=== PATIENT | female | born 1990 | race Caucasian/White ===

== ENCOUNTER 2018-05-15 18:39 | Emergency (ER) | payer BC ==
[2018-05-15 18:44] VITALS: BP 122/87; PULSE 78; TEMP 97.8; BMI 23.3
[2018-05-15 19:45] LABS: BASO % 0.6 % (0-2.0); EOS % 1.8 % (0-4.5); HEMATOCRIT 39.2 % (32.4-45.2); HEMOGLOBIN 13.4 GM/dL (10.7-15.3); LYMPH % 28.9 % (8-40); MCH 31.2 pg (25.7-33.7); MCHC 34.3 g/dl (32.0-36.0); MEAN CELL VOLUME 90.9 fl (80-96); MEAN PLT VOLUME 8.5 fl (7.5-11.1); MONO % 6.2 % (3.8-10.2); NEUT % 62.5 % (42.8-82.8); PLATELET COUNT 304 K/MM3 (134-434); RBC 4.31 M/mm3 (3.60-5.2); RDW 12.3 % (11.6-15.6); WHITE BLOOD COUNT 10.6 K/mm3 (4.0-10.0)
[2018-05-15 20:43] LABS: ALBUMIN 4.1 g/dl (3.4-5.0); ALK PHOS 46 U/L (45-117); ANION GAP 6 MMOL/L (8-16); BILIRUBIN,TOTAL 0.3 mg/dL (0.2-1); BLOOD UREA NITROGEN 6 mg/dL (7-18); CALCIUM 10.1 mg/dL (8.5-10.1); CHLORIDE 108 mmol/L (98-107); CO2 27 mmol/L (21-32); CREATININE 0.4 mg/dL (0.55-1.3); GLUCOSE,RANDOM 96 mg/dL (74-106); POTASSIUM 4.7 mmol/L (3.5-5.1); SGOT/AST 11 U/L (15-37); SGPT/ALT 17 U/L (13-61); SODIUM 141 mmol/L (136-145); TOT PROT 7.1 g/dl (6.4-8.2)
[2018-05-15 20:48] LABS: HCG,QUALITATIVE URINE Positive
[2018-05-15 20:49] LABS: URINE APPEARANCE SLCLOUDY; URINE BILIRUBIN NEGATIVE (<2.0 mg/dL); URINE COLOR LTYELLOW; URINE GLUCOSE (UA) NEGATIVE (NEGATIVE); URINE KETONE NEGATIVE (NEGATIVE); URINE LEUK ESTERASE NEGATIVE (NEGATIVE); URINE NITRITE NEGATIVE (NEGATIVE); URINE PROTEIN NEGATIVE (NEGATIVE); URINE UROBILINOGEN NEGATIVE mg/dL (0.2-1.0)
[2018-05-15 20:53] LABS: EPI CELLS RARE /HPF (FEW); URINE BACTERIA RARE /hpf (NONE SEEN); URINE MUCUS RARE
--- NOTE | 2018-05-15 21:09 | PDOC ---
History of Present Illness - General Chief Complaint: Vaginal Bleeding Stated Complaint: 12 PREGNATNT VAGINAL BLEEDING Time Seen by Provider: 05/15/18 19:34 History Source: Patient Exam Limitations: No Limitations - History of Present Illness Travel History: No Initial Comments: 05/15/18 21:20 Best Contact: / Maria E: PCP:Dr. Cervantes/Britta Pmhx:0 Pshx:0 Allergies:NKDA FH:0 Social Hx: Cigarettes/ 0 Alcohol/0 Drugs/0 LMP:02/15/2018 27-year-old female presents to the emergency department with her complaining of vaginal spotting 3 hours ago. With lower pelvic cramping described as 4/10 nonradiating intermittent discomfort. Patient states after voiding, she wiped and noticed a quarter size blood clot. Patient denies fever, chills, nausea/vomiting, headache, dizziness, lightheadedness, back pain, chest pain, shortness of breath, flank pains, urinary symptoms: Frequency/urgency/ hesitancy, hematuria. Patient states she last had her ultrasound 3 weeks ago which was normal at her checkup with her blanket inspector. Past History - Past Medical History Allergies/Adverse Reactions: Allergies Allergy/AdvReac Type Severity Reaction Status Date / Time No Known Allergies Allergy Verified 05/15/18 18:41 COPD: No - Reproductive History Is Patient Now?: Yes - Suicide/Smoking/Psychosocial Hx Smoking History: Never smoked Information on smoking cessation initiated: No Hx Alcohol Use: No Drug/Substance Use Hx: No Substance Use Type: None Review of Systems - Review of Systems Able to Perform ROS?: Yes Comments:: 05/15/18 21:37 CONSTITUTIONAL: Absent: fever, chills, diaphoresis, generalized weakness, malaise, loss of appetite GASTROINTESTINAL: +Pelvic cramping Absent: abdominal pain, abdominal distension, nausea, vomiting, diarrhea, constipation, melena, hematochezia GENITOURINARY: Absent: dysuria, frequency, urgency, hesitancy, hematuria, flank pain, genital pain MUSCULOSKELETAL: Absent: myalgia, arthralgia, joint swelling SKIN: Absent: rash, itching, pallor HEMATOLOGIC/IMMUNOLOGIC: Absent: easy bleeding, easy bruising, lymphadenopathy, frequent infections ENDOCRINE: Absent: unexplained weight gain, unexplained weight loss, heat intolerance, cold intolerance NEUROLOGIC: Absent: headache, focal weakness or paresthesias, dizziness, unsteady gait, seizure, mental status changes, bladder or bowel incontinence PSYCHIATRIC: Absent: anxiety, depression, suicidal or homicidal ideation, hallucinations. Is the patient limited Swedish proficient: No *Physical Exam - Vital Signs Last Vital Signs Temp Pulse Resp BP Pulse Ox 97.8 F 78 18 122/87 100 05/15/18 18:42 05/15/18 18:42 05/15/18 18:42 05/15/18 18:42 05/15/18 18:42 - Physical Exam Comments: 05/15/18 21:41 GENERAL: Well developed, well nourished. Awake and alert. No acute distress. HEENT: Normocephalic, atraumatic. PERRLA, EOMI. No conjunctival pallor. Sclera are non- icteric. Moist mucous membranes. Oropharynx is clear. NECK: Supple. Full ROM. No JVD. Carotid pulses 2+ and symmetric, without bruits. No thyromegaly. No lymphadenopathy. CARDIOVASCULAR: Regular rate and rhythm. No murmurs, rubs, or gallops. Distal pulses are 2+ and symmetric. PULMONARY: No evidence of respiratory distress. Lungs clear to auscultation bilaterally. No wheezing, rales or rhonchi. ABDOMINAL: Soft. Non-tender. Non-distended. No rebound or guarding. No organomegaly. Normoactive bowel sounds. SKIN: Warm and dry. Normal capillary refill. No rashes. No jaundice. Pelvic: External genitalia normal without lesions. Vaginal vault + blood Cervix is long and closed. ED Treatment Course - LABORATORY CBC & Chemistry Diagram: 05/15/18 19:31 05/15/18 19:31 - ADDITIONAL ORDERS Additional order review: Laboratory Results 05/15/18 05/15/18 05/15/18 20:30 19:31 19:31 Sodium Potassium Chloride Carbon Dioxide Anion Gap BUN Creatinine Creat Clearance w eGFR Random Glucose Calcium Total Bilirubin AST ALT Alkaline Phosphatase Total Protein Albumin Beta HCG, Quant Cancelled Urine Color Ltyellow Urine Appearance Slcloudy Urine pH 6.0 Ur Specific [place] 1.011 Urine Protein Negative Urine Glucose (UA) Negative Urine Ketones Negative Urine Blood 3+ H Urine Nitrite Negative Urine Bilirubin Negative Urine Urobilinogen Negative Ur Leukocyte Esterase Negative Urine WBC (Auto) 6 Urine RBC (Auto) 5 Ur Epithelial Cells Rare Urine Bacteria Rare Urine Mucus Rare Urine HCG, Qual Positive Blood Type A POSITIVE Antibody Screen Negative 05/15/18 19:31 Sodium 141 Potassium 4.7 Chloride 108 H Carbon Dioxide 27 Anion Gap 6 L BUN 6 L Creatinine 0.4 L Creat Clearance w eGFR > 60 Random Glucose 96 Calcium 10.1 Total Bilirubin 0.3 AST 11 L ALT 17 Alkaline Phosphatase 46 Total Protein 7.1 Albumin 4.1 Beta HCG, Quant 2629.9 Urine Color Urine Appearance Urine pH Ur Specific [place] Urine Protein Urine Glucose (UA) Urine Ketones Urine Blood Urine Nitrite Urine Bilirubin Urine Urobilinogen Ur Leukocyte Esterase Urine WBC (Auto) Urine RBC (Auto) Ur Epithelial Cells Urine Bacteria Urine Mucus Urine HCG, Qual Blood Type Antibody Screen 05/15/18 19:31 RBC 4.31 MCV 90.9 MCHC 34.3 RDW 12.3 MPV 8.5 Neutrophils % 62.5 Lymphocytes % 28.9 Monocytes % 6.2 Eosinophils % 1.8 Basophils % 0.6 - RADIOLOGY Radiology Studies Ordered: Category Date Time Status TRANSVAGINAL US PREG [US] Stat Ultrasound 05/15/18 19:23 Ordered Radiograph Interpretation: 05/15/18 23:11 Transvaginal US; single intrauterine gestation with enlarged irregular gestational sac and no heart rate. Consistent with missed *DC/Admit/Observation/Transfer Diagnosis at time of Disposition: Missed - Discharge Dispostion Condition at time of disposition: Stable Decision to Admit order: No - Referrals Referrals: Ciro Almendarez MD [Staff Physician] - - Patient Instructions Printed Discharge Instructions: DI for Miscarriage Additional Instructions: Your Beta HCG today was: 2629.9 Your transvaginal ultrasound today shows: Single intrauterine gestation with enlarged irregular gestational sac and no heart rate. These findings are consistent with missed . Measures 12 x 6.8 x 6.3 cm in diameter. There is a intrauterine gestational sac and pole identified. However, the gestational sac is somewhat enlarged in comparison with the identified pole with irregular borders. A yolk sac was not identified. The heart rate was not identified. [place]-rump length measurements corresponding to an expected gestational age of 8 weeks 3 days. heart rate should be identified at this stage. Increase fluids Pelvic rest Follow-up with your blanket inspector in 2 days Return back to the emergency department for severe/persistent/worsening pain or any concerns - Post Discharge Activity
== END 2018-05-15 23:18 | disposition home or self-care (01) ==
LOC: JER 18:39
DX: O26.891 Other specified pregnancy related conditions, first trimester (principal); O02.1 Missed abortion; Z3A.08 8 weeks gestation of pregnancy
CPT/HCPCS: 36415; 76817-TC; 80053; 81003; 81015; 84702; 84703; 85025; 86850; 86900; 86901; 99283-25

== ENCOUNTER 2018-05-18 19:52 | Day surgery (SDC) | payer BC ==
--- NOTE | 2018-05-18 20:15 | PDOC ---
History of Present Illness - General Stated Complaint: SENT BY PCP Time Seen by Provider: 05/18/18 20:13 History Source: Patient Exam Limitations: No Limitations Past History - Past Medical History Allergies/Adverse Reactions: Allergies Allergy/AdvReac Type Severity Reaction Status Date / Time No Known Allergies Allergy Verified 05/15/18 18:41 Home Medications: Ambulatory Orders NK [No Known Home Medication] 05/18/18 Anemia: No Asthma: No Cancer: No Cardiac Disorders: No CVA: No COPD: No CHF: No Dementia: No Diabetes: No GI Disorders: No Disorders: No HTN: No Hypercholesterolemia: No Liver Disease: No Seizures: No Thyroid Disease: No - Suicide/Smoking/Psychosocial Hx Smoking History: Never smoked Hx Alcohol Use: No Drug/Substance Use Hx: No Substance Use Type: None
--- NOTE | 2018-05-18 20:17 | PDOC ---
Rapid Medical Evaluation Time Seen by Provider: 05/18/18 20:13 Medical Evaluation: Allergies Allergy/AdvReac Type Severity Reaction Status Date / Time No Known Allergies Allergy Verified 05/15/18 18:41 05/18/18 20:13 I have performed a brief in-person evaluation of this patient. The patient presents with a chief complaint of: s/p miscarriage Thursday, with cramping and fever today. 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 Denies dizziness. Pertinent physical exam findings are: NAD even and unlabored breathing mild tenderness in lower abdomen I have ordered the following: beta hcg ordered, cbc The patient will proceed to the ED for further evaluation.
[2018-05-18 20:19] VITALS: BMI 24.2
--- NOTE | 2018-05-18 20:38 | PDOC ---
Attending Attestation - HPI HPI: 05/18/18 21:12 The patient is a 27 year old female with no significant PMH who presents to the emergency department with abdominal pain since earlier today. The patient reports that she was seen in the ED 3 days ago for vaginal bleed for which she was reported to have an intrauterine demise. The patient went to her OB today and was sent to the ED for a D&C secondary to increased pain and fever. The patient denies any other symptoms. She denies any chills, nausea, vomiting, diarrhea, constipation or urinary symptoms. She denies any chest pain, shortness of breath, headache or dizziness. The patient denies any other complaints. Documentation prepared by Pietro Snider, acting as medical operations supervisor for Tonie Torres MD. <Pietro Snider - Last Filed: 05/18/18 21:12> - Resident Resident Name: Delon Bernal - ED Attending Attestation I have performed the following: I have examined & evaluated the patient, The case was reviewed & discussed with the resident, I agree w/resident's findings & plan, Exceptions are as noted - Physicial Exam PE: 05/20/18 04:14 GENERAL: Awake, alert, and fully oriented LUNGS: No distress, speaks full sentences, clear to auscultation bilaterally HEART: Regular rate and rhythm, normal S1 and S2, no murmurs, rubs or gallops, peripheral pulses normal and equal bilaterally. ABDOMEN: +Lower abdominal ttp. Soft, normoactive bowel sounds. No guarding, no rebound. No masses EXTREMITIES : Normal inspection, Normal range of motion, no edema. No clubbing or cyanosis. SKIN: Warm, Dry, normal turgor, no rashes or lesions noted - Medical Decision Making 05/18/18 20:42 Ms Tapia is a 27 yo F with know IUFD, now with increasing pain and fever Pt contacted her data integration developer who referred her to the ER for possible D&C Pre op labs ordered Clinical Impression: miscarriage, initial presentation <Tonie Torres - Last Filed: 05/20/18 04:33>
--- NOTE | 2018-05-18 20:49 | PDOC ---
History of Present Illness - General Chief Complaint: Vaginal Bleeding Stated Complaint: SENT BY PCP Time Seen by Provider: 05/18/18 20:13 - History of Present Illness Initial Comments: 05/18/18 20:44 27 yo , at 10wga, LMP 02/15/18, with h/o recent diagnosis of missed who p/w vaginal bleed and abdominal pain. Patient with recent missed as visualized on TVUS 05/15/18 and findigns of single intrauterine gestation with pole, but absent FHR, and no yolk sac. Patient reports ongoing vaginal bleeding beginning 05/15. Reports vaginal clotting 05/16/- (now resolved). Endorses pads 2 /day. + Crampy lower abdominal pain x 1 week , with nod identifiable triggers or alleviators. Denies h/o abdominal trauma. Patient denies N/V, F,C, CP, SOB, urinary complaints, hematuria,pelvic pain, vaginal discharge/burning/itching, diarrhea, constipation, BPR, lightheadedness , weakness, sensory changes. PMHx: as noted above ROS: as noted SHx: Denies Etoh, IVDA, tobacco use. Allergies: NKDA PAPER BOX MAKER: Dr. Luevano Past History - Past Medical History Allergies/Adverse Reactions: Allergies Allergy/AdvReac Type Severity Reaction Status Date / Time No Known Allergies Allergy Verified 05/15/18 18:41 Home Medications: Ambulatory Orders NK [No Known Home Medication] 05/18/18 Anemia: No Asthma: No Cancer: No Cardiac Disorders: No CVA: No COPD: No CHF: No Dementia: No Diabetes: No GI Disorders: No Disorders: No HTN: No Hypercholesterolemia: No Liver Disease: No Seizures: No Thyroid Disease: No - Suicide/Smoking/Psychosocial Hx Smoking History: Never smoked Information on smoking cessation initiated: No Hx Alcohol Use: No Drug/Substance Use Hx: No Substance Use Type: None Review of Systems - Review of Systems Comments:: 05/18/18 20:52 GENERAL/CONSTITUTIONAL: No fever or chills. No weakness. HEAD, EYES, EARS, NOSE AND THROAT: No change in vision. No ear pain or discharge. No sore throat. CARDIOVASCULAR: No chest pain or shortness of breath RESPIRATORY: No cough, wheezing, or hemoptysis. GASTROINTESTINAL:+ Abdominal pain and vaginal bleeding. No nausea, vomiting, diarrhea or constipation. GENITOURINARY: No dysuria, frequency, or change in urination. MUSCULOSKELETAL: No joint or muscle swelling or pain. No neck or back pain. SKIN: No rash NEUROLOGIC: No headache, vertigo, loss of consciousness, or change in strength/ sensation. ENDOCRINE: No increased thirst. No abnormal weight change HEMATOLOGIC/LYMPHATIC: No anemia, easy bleeding, or history of blood clots. ALLERGIC/IMMUNOLOGIC: No hives or skin allergy. *Physical Exam - Vital Signs Last Vital Signs Temp Pulse Resp BP Pulse Ox 97.7 F 96 H 20 124/71 100 05/18/18 20:16 05/18/18 20:16 05/18/18 20:16 05/18/18 20:16 05/18/18 20:16 - Physical Exam Comments: 05/18/18 20:52 GENERAL: Awake, alert, and fully oriented, in no acute distress HEAD: No signs of trauma, normocephalic, atraumatic EYES: PERRLA, EOMI, sclera anicteric, conjunctiva clear ENT: Hearing grossly normal, nares patent, oropharynx clear without exudates. Moist mucosa NECK: Normal ROM, supple, no lymphadenopathy, JVD, or masses LUNGS: No distress, speaks full sentences, clear to auscultation bilaterally HEART: Regular rate and rhythm, normal S1 and S2, no murmurs, rubs or gallops, peripheral pulses normal and equal bilaterally. ABDOMEN: +Lower abdominal ttp. Soft, normoactive bowel sounds. No guarding, no rebound. No masses EXTREMITIES : Normal inspection, Normal range of motion, no edema. No clubbing or cyanosis. SKIN: Warm, Dry, normal turgor, no rashes or lesions noted ED Treatment Course - LABORATORY CBC & Chemistry Diagram: 05/18/18 20:51 05/18/18 20:51 Medical Decision Making - Medical Decision Making 05/18/18 20:49 27 yo , at 10wga, LMP 02/15/18, with h/o recent diagnosis of missed (05/15/18)who p/w vaginal bleed and abdominal pain. VSS, AF. + Lower abdominal ttp. Will evaluate for missed vs. complete and need for D&C vs. Misopristol. Low suspicion ectopic , heterotopic or molar , Preclampsia. Patient A+ blood type. ED Course: 05/18/18 21:42 CBC,CMP: Unremarkable Per Dr. luevano PAPER BOX MAKER, patient with multiple ED encounters. Plan to OR for D&C. Patient stable for admission. *DC/Admit/Observation/Transfer Diagnosis at time of Disposition: Missed - Discharge Dispostion Condition at time of disposition: Stable - Referrals - Patient Instructions - Post Discharge Activity
[2018-05-18 21:13] LABS: BASO % 0.4 % (0-2.0); EOS % 1.6 % (0-4.5); HEMATOCRIT 41.1 % (32.4-45.2); HEMOGLOBIN 13.6 GM/dL (10.7-15.3); LYMPH % 28.2 % (8-40); MCH 30.3 pg (25.7-33.7); MCHC 33.1 g/dl (32.0-36.0); MEAN CELL VOLUME 91.6 fl (80-96); MEAN PLT VOLUME 8.2 fl (7.5-11.1); MONO % 6.5 % (3.8-10.2); NEUT % 63.3 % (42.8-82.8); PLATELET COUNT 300 K/MM3 (134-434); RBC 4.49 M/mm3 (3.60-5.2); RDW 12.4 % (11.6-15.6); WHITE BLOOD COUNT 9.9 K/mm3 (4.0-10.0)
[2018-05-18 21:19] LABS: INR 1.13 (0.83-1.09); PROTHROMBIN TIME (PATIENT) 13.3 SEC (9.7-13.0)
[2018-05-18 21:33] LABS: ALBUMIN 4.1 g/dl (3.4-5.0); ALK PHOS 50 U/L (45-117); ANION GAP 7 MMOL/L (8-16); BILIRUBIN,TOTAL 0.8 mg/dL (0.2-1); BLOOD UREA NITROGEN 8 mg/dL (7-18); CALCIUM 9.4 mg/dL (8.5-10.1); CHLORIDE 109 mmol/L (98-107); CO2 24 mmol/L (21-32); CREATININE 0.4 mg/dL (0.55-1.3); GLUCOSE,RANDOM 73 mg/dL (74-106); POTASSIUM 4.2 mmol/L (3.5-5.1); SGOT/AST 14 U/L (15-37); SGPT/ALT 15 U/L (13-61); SODIUM 141 mmol/L (136-145); TOT PROT 7.4 g/dl (6.4-8.2)
[2018-05-18] MEDS ORDERED: PROPOFOL 20 ML ONE ×2 (21:49→22:41)
[2018-05-18] MEDS ORDERED: MIDAZOLAM HCL 2 MG/2 ML SINGLE DOSE VIAL ONE (21:49)
--- NOTE | 2018-05-18 22:14 | HP ---
Past Medical History - Primary Care Physician PCP:: Riley Guajardo - Admission Chief Complaint: 27yo with pregancy at EGA 8wk (US) and missed ab presents with c/o vaginal bleeding, severe abdominal pain, and reported fever at home. History of Present Illness: Pt with at EGA 12wk(LMP) and prior ER visit in 05/15/2018 with vaginal bleeding when she was diagnosed with missed Ab at 8wks. The pt called today c/o severe abdominal pain and low-grade fevers at home to 100.0 History Source: Patient, Medical Record Limitations to Obtaining History: No Limitations - Past Medical History FISH SEINER: No: Alzheimer's, CVA, Dementia, Migraine, Multiple Sclerosis, Peripheral Neuropathy, Parkinson's, Seizure, Syncope, TIA, Vertigo, Other Cardiovascular: No: AFIB, Aneurysm, Aortic Insufficiency, Aortic Stenosis, CAD, CHF, Deep Vein Thrombosis, HTN, Hyperlipdemia, MA, Mitral Insufficiency, Mitral Stenosis, Murmur, Pulmonary Hypertension, Other Pulmonary: No: Asthma, Bronchitis, Cancer, COPD, O2 Dependent, Pneumonia, Previously Intubated, Pulmonary Embolus, Pulmonary Fibrosis, Sleep Apnea, Other Gastrointestinal: No: Ascites, Cancer, Constipation, Crohn's Disease, Diverticulitis, Diverticulosis, Esophageal Varices, Gastritis, GERD, GI Bleed, Hemorrhoids, Hiatal Hernia, Inflamatory Bowel Disease, Irritable Bowel Disease, Pancreatitis, Peptic Ulcer Disease, Ulcerative Colitis, Other Hepatobiliary: No: Cirrhosis, Cholelithiasis, Cholecystitis, Choledocholithiasis , Hepatitis A, Hepatitis B, Hepatitis C, Other Renal/: No: Renal Failure, Renal Inusuff, BPH, Cancer, Hematuria, Hemodialysis , Neurogenic Bladder, Renal Calculi, UTI, Other Reproductive: No: Ectopic , Endometriosis, Fibroids, PID, Polycystic Ovary Syndrome, Postmenopausal, Other ...: 1 ...Para: 0 Heme/Onc: No: Anemia, B12 Deficiency, Bleeding Disorder, Cancer, Current Chemotherapy, Current Radiation Therapy, Hemochromatosis, Hypercoaguable State, Myeloproliferative Synd, Sickle Cell Disease, Sickle Cell Trait, Thrombocytopenia, Other Infectious Disease: No: AIDS, C-Diff, Herpes Zoster, HIV, MRSA, STD's, Tuberculosis, VREF, Other Psych: No: Addictions, Anxiety, Bipolar, Depression, Panic, Psychosis, Schizophrenia, Other Musculoskeletal: No: Bursitis, Chronic low back pain, Hemiparesis, Hemiplegia, Osteoarthritis, Paraplegia, Other Rheumatology: No: Fibromyalgia, Gout, Lupus, Rheumatoid Arthritis, Sarcoidosis, Vasculitis, Other ENT: No: Allergic Rhinitis, Sinusitis, Other Endocrine: No: Ambrose's Disease, Ryan's Disease, Diabetes Insipidus, Diabetes Mellitus, Hyperparathyroidism, Hyperthyroidism, Hypothyroidism, Osteopenia, SIADH, Other Dermatology: No: Basal Cell, Cellulitis, Eczema, Melanoma, Psoriasis, Squamous Cell, Other - Past Surgical History Past Surgical History: Yes: None Hx Myomectomy: No Hx Transabdominal Cerclage: No - Smoking History Smoking history: Never smoked Have you smoked in the past 12 months: No - Alcohol/Substance Use Hx Alcohol Use: No History of Substance Use: reports: None - Social History Usual Living Arrangement: Yes: With Spouse ADL: Independent Occupation: physical therapist History of Recent Travel: No Home Medications - Allergies Allergies/Adverse Reactions: Allergies Allergy/AdvReac Type Severity Reaction Status Date / Time No Known Allergies Allergy Verified 05/15/18 18:41 - Home Medications Home Medications: Ambulatory Orders NK [No Known Home Medication] 05/18/18 Family Disease History - Family Disease History Family History: Denies Review of Systems - Review of Systems Constitutional: reports: Fever Eyes: reports: No Symptoms HENT: reports: No Symptoms Neck: reports: No Symptoms Cardiovascular: reports: No Symptoms Respiratory: reports: No Symptoms Gastrointestinal: reports: No Symptoms Genitourinary: reports: Vaginal Bleeding Breasts: reports: No Symptoms Reported Musculoskeletal: reports: No Symptoms Integumentary: reports: No Symptoms Neurological: reports: No Symptoms Endocrine: reports: No Symptoms Hematology/Lymphatic: reports: No Symptoms Psychiatric: reports: No Symptoms Pain Intensity: 6 Physical Exam - Maternity Vital Signs: Vital Signs Temperature 97.7 F 05/18/18 20:16 Pulse Rate 96 H 05/18/18 20:16 Respiratory Rate 20 05/18/18 20:16 Blood Pressure 124/71 05/18/18 20:16 O2 Sat by Pulse Oximetry (%) 100 05/18/18 20:16 Constitutional: Yes: Well Nourished, No Distress, Calm Eyes: Yes: WNL, Conjunctiva Clear HENT: Yes: WNL, Atraumatic, Normocephalic Neck: Yes: WNL, Supple, Trachea Midline Cardiovascular: Yes: WNL, Regular Rate and Rhythm Lungs: Clear to auscultation, Normal air movement - Abdominal Exam/OB Fundal Height: 8 Number of Fetuses: Single - Vaginal Exam/OB Vaginal Bleediing: Yes Speculum Exam: No Dilatation (cm): 0 Effacement (%): 0 - Physical Exam Musculoskeletal: Yes: WNL Extremities: Yes: WNL Edema: No Integumentary: Yes: WNL Deep Tendon Reflex Grade: Normal +2 ...Motor Strength: WNL Psychiatric: Yes: WNL, Alert, Oriented - Labs Lab Results: CBC, BMP 05/18/18 20:51 05/18/18 20:51 Hemorrhage Risk Assessment - Risk Factors Medium Risk Factors: Yes: None High Risk Factors: Yes: None Risk Score: 1 Risk Level: Medium Risk Imaging - Results Ultrasound: Report Reviewed Assessment/Plan 27yo with pregancy at EGA 8wk (US) and missed ab presents with c/o vaginal bleeding, severe abdominal pain, and reported fever at home. We had a long discussion about the risks, benefits, and alternatives of surgery. I explained the risks of infection, bleeding, scarring, amenorrhea, Asherman's syndrome, infertility, perforation, need for additional surgery to treat any complications , etc. The pt declined expectant management of missed ab or prostaglandin indx. She requested to proceed with surgery.
[2018-05-18] MEDS ORDERED: ONDANSETRON 4 MG/2 ML VIAL ONE (22:42)
[2018-05-18] MEDS ORDERED: DEXAMETHASONE SOD PHOSPHATE 4 MG/1 ML VIAL ONE (22:42)
[2018-05-18] MEDS ORDERED: KETOROLAC TROMETHAMINE 30 MG/1 ML VIAL ONE (22:50)
--- NOTE | 2018-05-18 22:56 | OP ---
Operative Note - Note: Operative Date: 05/18/18 Pre-Operative Diagnosis: Missed Ab Operation: Surgical Tx of missed Ab (Suction D&C) Findings: Small RV uterus, (+) POC Post-Operative Diagnosis: Same as Pre-op Surgeon: Riley Guajardo Anesthesiologist/CALENDER WORKER HELPER: Sarah Lopez Anesthesia: General Specimens Removed: POC Estimated Blood Loss (mls): 30 Blood Volume Replaced (mls): 0 Fluid Volume Replaced (mls): 100 Operative Report Dictated: Yes
[2018-05-18] MEDS ORDERED: LACTATED RINGERS SOLUTION 1,000 ML IV SCH (23:45)
[2018-05-18] MEDS ORDERED: oxyCODONE HCL 5 MG TABLET PO PRN (23:45)
[2018-05-18] MEDS ORDERED: ONDANSETRON 4 MG/2 ML VIAL IVPUSH PRN (23:45)
[2018-05-19 00:17] VITALS: BP 100/48; PULSE 91; TEMP 97.5
--- NOTE | 2018-05-19 11:37 | OP ---
DATE OF OPERATION: 05/18/2018 PREOPERATIVE DIAGNOSIS: Missed . POSTOPERATIVE DIAGNOSIS: Missed . PROCEDURE: Surgical treatment of missed , suction curettage, dilation and curettage. SURGEON: Justen Duran MD ANESTHESIOLOGIST: Sarah Lopez. ANESTHESIA: General. COMPLICATIONS: None. PATHOLOGY: Products of conception. ESTIMATED BLOOD LOSS: 30 mL. INTRAVENOUS FLUIDS: 100 mL. FINDINGS: Examination under anesthesia revealed a small retroverted uterus with active vaginal bleeding. No pelvic or adnexal masses. Suction curettage revealed products of conception. No retained products of conception were noted at the end of the procedure. PROCEDURE: The patient was met preoperatively. The risks, benefits, and alternatives of surgery were discussed in detail. All questions were answered in detail. The patient verbalized understanding and requested to proceed with surgery. The patient was brought to the OR with IV running. She was placed on the surgical table in the supine position. The general anesthesia was achieved without difficulty. The patient was then placed in a dorsal lithotomy position using adjustable Ronaldo stirrups. The patient was prepped and draped in the usual sterile fashion. A timeout procedure was conducted as per standard protocol. The sterile vaginal speculum was then used to visualize the cervix. The anterior cervical lip was grasped with a single-toothed tenaculum. The cervical os was dilated to accommodate a size a 25 Joens dilator. An 8-mm suction curette was used to vacuum curettage the uterine cavity. No retained products of conception were noted once the procedure was completed. All of the instruments were removed from the patient. Sponge, lap, and instrument counts were correct. Good hemostasis was noted. The patient was transferred to the recovery room, awake, and in stable condition. JUSTEN DURAN M.D. [id number]
--- NOTE | 2018-05-20 14:25 | PATH ---
Surgical Pathology Report Patient Name: HUY CAVANAUGH Med. Rec. #: [id number] /Age/Gender: 1990 (Age: 27) / F Account: [id number] Location: AMBULATORY SURG Taken: 05/18/2018 Received: 05/19/2018 Reported: 05/20/2018 Physicians: Rickey Galicia M.D. Specimen(s) Received UTERINE CONTENTS Clinical History Missed 8 weeks Final Diagnosis UTERINE CONTENTS, DILATION AND CURETTAGE: IMMATURE CHORIONIC VILLI, DECIDUA, AND GESTATIONAL ENDOMETRIUM CONSISTENT WITH PRODUCTS OF CONCEPTION. Electronically Signed Emily Munson M.D. Gross Description Received in formalin labeled "uterine contents," is a 13.5 x 10.0 x 0.8 cm aggregate of kohler-brown soft tissue fragments. Villous tissue is identified. No somatic tissue is identified. A inbound sales representative portion is submitted in one cassette. /05/19/2018 saudi05/19/2018
== END 2018-05-19 00:31 | disposition home or self-care (01) ==
LOC: JER 19:52 → J3W 22:53 → JER 23:11 → JASUSAT 23:12 → J3W 23:14 → JASUSAT 05-19 00:31
PROVIDERS: ATTEND Obstetrics & Gynecology
PROC: 10D17ZZ Extraction of Products of Conception, Retained, Via Natural or Artificial Opening (ICD-10-PCS; principal; 2018-05-18 21:54)
DX: O02.1 Missed abortion (principal)
CPT/HCPCS: 36415; 80053; 84702; 85025; 85610; 86850; 86900; 86901; 88305-TC; 94760; 99282-25

== ENCOUNTER 2019-04-14 21:50 | Inpatient (IN) | payer BC | END 2019-04-17 12:10 | disposition home or self-care (01) | LOC: JDEL 21:50 → J3W 04-15 13:37 → JLDR 22:45 ==

== ENCOUNTER 2020-12-28 01:03 | Inpatient (IN) | payer BC ==
[2020-12-28] MEDS ORDERED: BUTORPHANOL TARTRATE 1 MG/ML VIAL IVPB ONE (05:00)
[2020-12-28] MEDS ORDERED: PROMETHAZINE HCL 25 MG/1 ML VIAL IVPB ONE (05:00)
[2020-12-28] MEDS ORDERED: ELECTROLYTE-148 SOLN 1,000 ML IV SCH (05:00)
[2020-12-28 05:17] LABS: BASO % 0.4 % (0-2.0); EOS % 0.9 % (0-4.5); HEMATOCRIT 32.7 % (32.4-45.2); HEMOGLOBIN 11.3 GM/dL (10.7-15.3); LYMPH % 16.8 % (8-40); MCH 30.6 pg (25.7-33.7); MCHC 34.6 g/dl (32.0-36.0); MEAN CELL VOLUME 88.3 fl (80-96); MEAN PLT VOLUME 9.6 fl (7.5-11.1); NEUT % 75.9 % (42.8-82.8); PLATELET COUNT 229 K/MM3 (134-434); WHITE BLOOD COUNT 12.7 K/mm3 (4.0-10.0)
[2020-12-28 05:25] LABS: INR 0.93 (0.83-1.09); PROTHROMBIN TIME (PATIENT) 11.3 SEC (9.7-13.0)
[2020-12-28 05:28] LABS: ACTIVATED PTT 24.9 SECONDS (25.2-36.5)
[2020-12-28 05:30] VITALS: BMI 26.6
[2020-12-28] MEDS ORDERED: PROMETHAZINE HCL 25 MG/1 ML VIAL ONE (05:34)
[2020-12-28] MEDS ORDERED: BUTORPHANOL TARTRATE 1 MG/ML VIAL ONE (05:34)
[2020-12-28 05:40] LABS: CALCIUM 8.2 mg/dL (8.5-10.1)
[2020-12-28 05:41] LABS: BLOOD UREA NITROGEN 7.5 mg/dL (7-18)
[2020-12-28 05:44] LABS: CREATININE 0.4 mg/dL (0.55-1.3)
[2020-12-28 06:40] LABS: HIV INTERPRETATION NEGATIVE (NEGATIVE)
[2020-12-28] MEDS ORDERED: PCA PUMP NR ONE (07:42)
[2020-12-28] MEDS ORDERED: FENTANYL/BUPIVACAINE/NS/PF - PCEA - 50 ML DISP.SYRIN EP ONE ×2 (07:43→12:11)
[2020-12-28] MEDS ORDERED: BUPIVACAINE HCL/PF 0.25% (2.5MG/ML) 10 ML VIAL ONE ×2 (07:54→08:39)
[2020-12-28] MEDS ORDERED: DEXTROSE 5%-LACTATED RINGERS 1,000 ML IV SCH (08:15)
[2020-12-28] MEDS: FENTANYL/BUPIVACAINE/NS/PF - PCEA - 50 ML DISP.SYRIN EP SCH ×2 (08:30→12:30)
[2020-12-28] MEDS ORDERED: OXYTOCIN 20 UNITS in 0.9% NS 20 UNIT/1,000 ML INFUS.BAG IV ONE ×2 (13:50→16:26)
[2020-12-28] MEDS ORDERED: LIDOCAINE HCL 1% PRESERVATIVE FREE - 30ML VIAL ONE (13:50)
[2020-12-28] MEDS: OXYTOCIN 20 UNITS in 0.9% NS 20 UNIT/1,000 ML INFUS.BAG IV SCH ×2 (14:50→16:40)
[2020-12-28] MEDS ORDERED: METHYLERGONOVINE MALEATE 0.2 MG/1 ML AMP IM PRN (15:16)
[2020-12-28] MEDS ORDERED: WITCH HAZEL 50% (TUCKS) 40 PAD/JAR PAD TP PRN (15:16)
[2020-12-28] MEDS ORDERED: BISACODYL 10 MG SUPP.RECT RC PRN (15:16)
[2020-12-28] MEDS ORDERED: BENZOCAINE 28 GM HEMORRHOIDAL OINTMENT TP PRN (15:16)
[2020-12-28] MEDS ORDERED: BENZOCAINE 20% 57 GM BOTTLE TP PRN (15:16)
[2020-12-28] MEDS ORDERED: IBUPROFEN 600 MG TABLET (FP) PO ONE (16:25)
[2020-12-28] MEDS ORDERED: ACETAMINOPHEN 325 MG TABLET (FP) ONE (16:26)
[2020-12-28] MEDS: IBUPROFEN 600 MG TABLET (FP) PO PRN ×2 (16:45→22:30)
[2020-12-28] MEDS: ACETAMINOPHEN 325 MG TABLET (FP) PO PRN (16:45)
[2020-12-29 08:15] LABS: BASO % 0.2 % (0-2.0); EOS % 0.5 % (0-4.5); HEMATOCRIT 31.5 % (32.4-45.2); HEMOGLOBIN 10.9 GM/dL (10.7-15.3); LYMPH % 14.2 % (8-40); MCH 30.7 pg (25.7-33.7); MCHC 34.5 g/dl (32.0-36.0); MEAN CELL VOLUME 88.9 fl (80-96); MONO % 4.6 % (3.8-10.2); NEUT % 80.5 % (42.8-82.8); PLATELET COUNT 225 K/MM3 (134-434); RBC 3.54 M/mm3 (3.60-5.2); WHITE BLOOD COUNT 13.7 K/mm3 (4.0-10.0)
[2020-12-29] MEDS: PRENATAL VITAMINS W/ FOLIC ACID TABLET (FP) PO SCH (09:45)
[2020-12-29] MEDS: IBUPROFEN 600 MG TABLET (FP) PO PRN ×2 (09:45→17:09)
[2020-12-29] MEDS: ACETAMINOPHEN 325 MG TABLET (FP) PO PRN ×2 (09:46→17:11)
[2020-12-29] MEDS: FENTANYL/BUPIVACAINE/NS/PF - PCEA - 50 ML DISP.SYRIN EP SCH (20:58)
[2020-12-29] MEDS: OXYTOCIN 20 UNITS in 0.9% NS 20 UNIT/1,000 ML INFUS.BAG IV SCH (20:58)
[2020-12-29] MEDS ORDERED: SENNOSIDES/DOCUSATE COMBO (SENNA PLUS) TABLET (UD) PO PRN (22:00)
[2020-12-30] MEDS: PRENATAL VITAMINS W/ FOLIC ACID TABLET (FP) PO SCH (09:09)
[2020-12-30] MEDS: IBUPROFEN 600 MG TABLET (FP) PO PRN (09:11)
[2020-12-30] MEDS: ACETAMINOPHEN 325 MG TABLET (FP) PO PRN (09:12)
[2020-12-30 10:44] VITALS: BP 138/87; PULSE 79; TEMP 98.7
== END 2020-12-30 12:45 | disposition home or self-care (01) | DRG 807 ==
LOC: JDEL 01:03 → JLDR 04:40 → J3W 17:15
PROVIDERS: ADMIT Obstetrics & Gynecology; ATTEND Obstetrics & Gynecology
PROC: 10E0XZZ Delivery of Products of Conception, External Approach (ICD-10-PCS; principal; 2020-12-28)
DX: O80 Encounter for full-term uncomplicated delivery (principal); Z37.0 Single live birth; Z3A.39 39 weeks gestation of pregnancy
CPT/HCPCS: 36415; 59025; 59409; 80048; 85025; 85610; 85730; 86762; 86780; 86850; 86900; 86901; 87340; 87389; C9803; U0003; U0005

== ENCOUNTER 2021-10-28 08:17 | Emergency (ER) | payer BC, OTHER ==
[2021-10-28 08:28] VITALS: BMI 24.2
[2021-10-28] MEDS ORDERED: ONDANSETRON *ODT* 4 MG TABLET SL ONE (08:29)
[2021-10-28] MEDS ORDERED: SODIUM CHLORIDE 1,000 ML IV STA (08:30)
[2021-10-28] MEDS ORDERED: ONDANSETRON 4 MG/2 ML VIAL IVPUSH ONE (08:35)
[2021-10-28] MEDS ORDERED: morphine CARPU-JECT 2 MG/1 ML DISP.SYRIN IVPUSH ONE (08:38)
[2021-10-28] MEDS ORDERED: ONDANSETRON 4 MG/2 ML VIAL ONE (09:00)
[2021-10-28 09:23] LABS: BASO % 0.4 % (0-2.0); EOS % 0.4 % (0-4.5); HEMATOCRIT 36.3 % (32.4-45.2); HEMOGLOBIN 12.6 GM/dL (10.7-15.3); LYMPH % 16.7 % (8-40); MCH 31.3 pg (25.7-33.7); MCHC 34.6 g/dl (32.0-36.0); MEAN CELL VOLUME 90.3 fl (80-96); MEAN PLT VOLUME 8.9 fl (7.5-11.1); NEUT % 78.5 % (42.8-82.8); PLATELET COUNT 268 10^3/uL (134-434); RBC 4.02 M/mm3 (3.60-5.2); RDW 13.1 % (11.6-15.6); WHITE BLOOD COUNT 10.9 K/mm3 (4.0-10.0)
[2021-10-28 09:43] LABS: CALCIUM 8.8 mg/dL (8.5-10.1)
[2021-10-28 09:44] LABS: BLOOD UREA NITROGEN 7.7 mg/dL (7-18)
[2021-10-28 09:47] LABS: CREATININE 0.6 mg/dL (0.55-1.3)
[2021-10-28 10:48] LABS: EPI CELLS >36 /uL (0-25.1); HYALINE CASTS 4 /uL (0-3.1); URINE APPEARANCE TURBID; URINE BACTERIA 5941 /uL (0-1359); URINE BILIRUBIN NEGATIVE (NEGATIVE); URINE COLOR YELLOW; URINE GLUCOSE (UA) NEGATIVE (NEGATIVE); URINE KETONE 1+ (NEGATIVE); URINE LEUK ESTERASE 1+ (NEGATIVE); URINE NITRITE NEGATIVE (NEGATIVE); URINE PROTEIN TRACE (NEGATIVE); URINE RBC 1236 /uL (0-23.9); URINE WBC 194 /uL (0-25.8)
[2021-10-28 12:53] VITALS: BP 113/56; PULSE 76; TEMP 97.8
[2021-10-28] MEDS ORDERED: CEFTRIAXONE 1 GM in DEXTROSE 5%-WATER - 50 ML IVPB ONE (13:30)
[2021-10-28] MEDS ORDERED: ELECTROLYTE-148 SOLN 1,000 ML IV SCH (13:45)
== END 2021-10-28 16:50 | disposition home or self-care (01) ==
LOC: JER 08:17 → JERFT 08:17 → JER 16:50
PROC: 3E03329 Introduction of Other Anti-infective into Peripheral Vein, Percutaneous Approach (ICD-10-PCS; principal; 2021-10-28)
PROC: 3E033NZ Introduction of Analgesics, Hypnotics, Sedatives into Peripheral Vein, Percutaneous Approach (ICD-10-PCS; 2021-10-28)
PROC: 3E033GC Introduction of Other Therapeutic Substance into Peripheral Vein, Percutaneous Approach (ICD-10-PCS; 2021-10-28)
PROC: 3E033GC Introduction of Other Therapeutic Substance into Peripheral Vein, Percutaneous Approach (ICD-10-PCS; 2021-10-28)
PROC: 3E0337Z Introduction of Electrolytic and Water Balance Substance into Peripheral Vein, Percutaneous Approach (ICD-10-PCS; 2021-10-28)
DX: O23.42 Unspecified infection of urinary tract in pregnancy, second trimester (principal); Z3A.24 24 weeks gestation of pregnancy
CPT/HCPCS: 36415; 76775-TC; 76815-TC; 80048; 81003; 85025; 87086; 99285-25

== ENCOUNTER 2022-02-17 06:54 | Inpatient (IN) | payer OTHER ==
[2022-02-17] MEDS ORDERED: OXYTOCIN 30 UNITS in 0.9% NS 30 UNIT/500 ML INFUS.BAG IVPB ONE (08:25)
[2022-02-17 08:50] LABS: BASO % 0.3 % (0-2.0); EOS % 0.9 % (0-4.5); HEMATOCRIT 32.2 % (32.4-45.2); HEMOGLOBIN 11.1 GM/dL (10.7-15.3); LYMPH % 24.4 % (8-40); MCH 30.3 pg (25.7-33.7); MCHC 34.4 g/dl (32.0-36.0); MEAN CELL VOLUME 88.2 fl (80-96); MEAN PLT VOLUME 9.4 fl (7.5-11.1); MONO % 5.5 % (3.8-10.2); NEUT % 68.9 % (42.8-82.8); PLATELET COUNT 336 10^3/uL (134-434); RBC 3.65 M/mm3 (3.60-5.2); RDW 13.7 % (11.6-15.6)
[2022-02-17 08:56] LABS: INR 0.98 (0.83-1.09); PROTHROMBIN TIME (PATIENT) 11.3 SEC (9.7-13.0)
[2022-02-17 08:59] LABS: ACTIVATED PTT 25.7 SECONDS (25.2-36.5)
[2022-02-17 09:01] VITALS: BMI 25.8
[2022-02-17 09:10] LABS: BLOOD UREA NITROGEN 4.8 mg/dL (7-18); CALCIUM 8.6 mg/dL (8.5-10.1)
[2022-02-17 09:13] LABS: CREATININE 0.4 mg/dL (0.55-1.3)
[2022-02-17] MEDS ORDERED: FENTANYL/BUPIVACAINE/NS/PF - PCEA - 50 ML DISP.SYRIN EP ONE (10:14)
[2022-02-17] MEDS ORDERED: ELECTROLYTE-148 SOLN 1,000 ML IV SCH (10:30)
[2022-02-17] MEDS ORDERED: OXYTOCIN 30 UNITS in 0.9% NS 30 UNIT/500 ML INFUS.BAG IVPB SCH (10:30)
[2022-02-17] MEDS ORDERED: NALOXONE HCL 0.4 MG/ML VIAL IVPUSH PRN (10:47)
[2022-02-17] MEDS ORDERED: FENTANYL/BUPIVACAINE/NS/PF - PCEA - 50 ML DISP.SYRIN EP SCH (11:00)
[2022-02-17] MEDS ORDERED: OXYTOCIN 20 UNITS in 0.9% NS 20 UNIT/1,000 ML INFUS.BAG IV ONE (14:55)
[2022-02-17] MEDS ORDERED: BISACODYL 10 MG SUPP.RECT RC PRN (16:00)
[2022-02-17] MEDS ORDERED: WITCH HAZEL 50% (TUCKS) 40 PAD/JAR PAD TP PRN (16:00)
[2022-02-17] MEDS ORDERED: BENZOCAINE 28 GM HEMORRHOIDAL OINTMENT TP PRN (16:00)
[2022-02-17] MEDS ORDERED: METHYLERGONOVINE MALEATE 0.2 MG/1 ML AMP IM PRN (16:00)
[2022-02-17] MEDS ORDERED: oxyCODONE HCL 5 MG TABLET PO PRN (16:00)
[2022-02-17] MEDS ORDERED: ACETAMINOPHEN 325 MG TABLET (FP) PO PRN (16:00)
[2022-02-17] MEDS ORDERED: BENZOCAINE 20% 57 GM BOTTLE TP PRN (16:00)
[2022-02-17] MEDS ORDERED: OXYTOCIN 20 UNITS in 0.9% NS 20 UNIT/1,000 ML INFUS.BAG IV SCH (16:00)
[2022-02-17 16:14] LABS: CORD BASE EXCESS -4.2 mmol/L (0-2); CORD HCO3 23.4 mmHg (20-29); CORD HCO3 23.7 mmHg (20-29); CORD PCO2 42.4 mmHg (30-78); CORD PCO2 54.5 mmHg (30-78); CORD pH 7.256 (7.14-7.44); CORD pH 7.36 (7.14-7.44)
[2022-02-17] MEDS: IBUPROFEN 600 MG TABLET (FP) PO PRN (17:00)
[2022-02-17] MEDS ORDERED: IBUPROFEN 600 MG TABLET (FP) PO ONE (17:00)
[2022-02-18] MEDS: IBUPROFEN 600 MG TABLET (FP) PO PRN ×2 (05:08→16:13)
[2022-02-18 07:09] LABS: BASO % 0.2 % (0-2.0); EOS % 0.8 % (0-4.5); HEMATOCRIT 30.7 % (32.4-45.2); HEMOGLOBIN 10.3 GM/dL (10.7-15.3); LYMPH % 20.1 % (8-40); MCHC 33.6 g/dl (32.0-36.0); MEAN CELL VOLUME 89.2 fl (80-96); MEAN PLT VOLUME 9.8 fl (7.5-11.1); NEUT % 72.9 % (42.8-82.8); PLATELET COUNT 299 10^3/uL (134-434); RBC 3.44 M/mm3 (3.60-5.2); RDW 13.8 % (11.6-15.6); WHITE BLOOD COUNT 14.7 K/mm3 (4.0-10.0)
[2022-02-18] MEDS: PRENATAL VITAMINS W/ FOLIC ACID TABLET (FP) PO SCH (11:00)
[2022-02-18] MEDS ORDERED: SENNOSIDES/DOCUSATE COMBO (SENNA PLUS) TABLET (UD) PO PRN (22:00)
[2022-02-19] MEDS: PRENATAL VITAMINS W/ FOLIC ACID TABLET (FP) PO SCH (10:09)
[2022-02-19 12:07] VITALS: BP 114/78; PULSE 99; TEMP 98.5
== END 2022-02-19 12:20 | disposition home or self-care (01) | DRG 807 ==
LOC: JLDR 06:54 → J3W 18:00
PROVIDERS: ADMIT Obstetrics & Gynecology; ATTEND Obstetrics & Gynecology
PROC: 10E0XZZ Delivery of Products of Conception, External Approach (ICD-10-PCS; principal; 2022-02-17)
DX: O80 Encounter for full-term uncomplicated delivery (principal); Z37.0 Single live birth; Z3A.39 39 weeks gestation of pregnancy
CPT/HCPCS: 36415; 36600; 59409; 80048; 82803; 85025; 85610; 85730; 86780; 86850; 86900; 86901; C9803-CS; U0003; U0005